=== PATIENT | male | born 1930 | race Caucasian/White ===

== ENCOUNTER 2018-09-07 14:31 | Emergency (ER) | payer OTHER, MEDICAID ==
[~2018-09-07] VITALS: Ht 170.2 cm; Wt 63.6 kg
[2018-09-07 14:37] VITALS: Ht 170.2 cm; Wt 63.6 kg
[2018-09-07] MEDS ORDERED: SOD CHLORIDE 0.9% 1,000 ML IV STA ×2 (14:37→15:59)
[2018-09-07] MEDS ORDERED: LORAZEPAM 2 MG INJ IV ONE (17:00)
[2018-09-07 18:30] VITALS: BP 127/59; PULSE 67; RESP 18
--- NOTE | 2018-09-07 19:38 | ERD ---
ER Documentation Chief Complaint Chief Complaint BIB from [facility],confused,no deficit noted HPI This is an 87-year-old male that was brought into the emergency department from [facility] facility. He been sent by his primary care physician for reevaluation as the patient has had generalized weakness for the past several days. He had a decrease in appetite. Contrary to the triage note the patient has not been confused. He denies any chest pain. He has no shortness of breath. He denies any frequency urgency or dysuria. He denies any abdominal pain. He denies a headache or changes in vision. There is been no recent hospitalizations. ROS All systems reviewed and are negative except as per history of present illness. Allergies Allergies: Coded Allergies: No Known Allergy (Unverified , 09/07/18) PMhx/Soc Hx Alcohol Use: Yes (occasional) Hx Substance Use: No Hx Tobacco Use: Yes Smoking Status: Current every day smoker Physical Exam Vitals Vital Signs Date Temp Pulse Resp B/P (MAP) Pulse Ox O2 O2 Flow FiO2 Time Delivery Rate 09/07/18 67 18 127/59 99 Room Air 18:30 (81) 09/07/18 86 18 140/77 96 Room Air 17:00 (98) 09/07/18 97.9 65 18 173/77 96 14:37 (109) Physical Exam Constitutional:Well-developed. Well-nourished. HEENT:Normocephalic. Atraumatic.Pupils were equal round reactive to light. Dry mucous membranes.No tonsillar exudates. Neck: No nuchal rigidity. No lymphadenopathy. No posterior cervical spine tenderness or step-offs. Respiratory: Not using accessory muscles of respiration.Lungs were clear to auscultation bilaterally. No rhonchi. No rales. No wheezing. Cardiovascular: Regular rate regular rhythm.No murmurs. No rubs were appreciated.S1, S2 normal. Distal pulses are palpable 2+ bilaterally. GI: Abdomen was soft. Nontender. Non Distended. No pulsatile abdominal masses or bruits. No rebound. No guarding. Bowel sounds were present and normal. Muscle skeletal: Full range of motion of both the upper and lower extremities bilaterally.Normal muscle tone.No assymetrical calf tenderness or swelling. Skin: No petechia, no purpura. No lesions on the palms or the soles of the feet. No maculopapular rash. NEURO: Patient was alert, awake, orientated x3.No facial droop. Gait observed and patient is able to ambulate with a slow steady gait.Speech had regular rate and rhythm. No focal neurological deficits. Result Diagram: 09/07/18 1510 09/07/18 1510 Results 24 hrs Laboratory Tests Test 09/07/18 15:07 09/07/18 15:10 09/07/18 15:11 09/07/18 15:30 Bedside Glucose 90 mg/dL White Blood Count 5.1 10^3/ul Red Blood Count 4.04 10^6/ul Hemoglobin 12.0 g/dl Hematocrit 37.9 % Mean Corpuscular 93.8 fl Volume Mean Corpuscular 29.7 pg Hemoglobin Mean Corpuscular 31.7 g/dl Hemoglobin Concen t Red Cell 14.6 % Distribution Width Platelet Count 283 10^3/UL Mean Platelet 9.1 fl Volume Immature 0.200 % Granulocytes % Neutrophils % 65.5 % Lymphocytes % 24.4 % Monocytes % 7.5 % Eosinophils % 2.0 % Basophils % 0.4 % Nucleated Red 0.0 /100WBC Blood Cells % Immature 0.010 10^3/ul Granulocytes # Neutrophils # 3.3 10^3/ul Lymphocytes # 1.2 10^3/ul Monocytes # 0.4 10^3/ul Eosinophils # 0.1 10^3/ul Basophils # 0.0 10^3/ul Nucleated Red 0.0 10^3/ul Blood Cells # Prothrombin Time 12.3 Sec Prothrombin Time 1.0 Ratio INR International 0.90 Normalized Ratio Activated 27.6 Sec Partial Thrombopl ast Time Sodium Level 144 mmol/L Potassium Level 4.5 mmol/L Chloride Level 104 mmol/L Carbon Dioxide 33 mmol/L Level Anion Gap 7 Blood Urea 25 mg/dl Nitrogen Creatinine 1.05 mg/dl Est Glomerular mL/min Filtrat Rate mL/min Glucose Level 88 mg/dl Calcium Level 10.0 mg/dl Total Bilirubin 0.3 mg/dl Direct Bilirubin 0.00 mg/dl Indirect 0.3 mg/dl Bilirubin Aspartate Amino 24 IU/L Transf (AST/SGOT) Alanine 14 IU/L Aminotransferase (ALT/SGPT) Alkaline 60 IU/L Phosphatase Creatine Kinase 137 IU/L Creatine Kinase 4.1 Index Creatinine Kinase 5.64 ng/ml MB (Mass) Troponin I 0.015 ng/ml Total Protein 8.0 g/dl Albumin 4.4 g/dl Globulin 3.60 g/dl Albumin/Globulin 1.22 Ratio POC Venous 0.7 mmol/L Lactate Urine Color YELLOW Urine Clarity CLEAR Urine pH 5.0 Urine Specific 1.025 [place] Urine Ketones TRACE mg/dL Urine Nitrite NEGATIVE mg/dL Urine Bilirubin NEGATIVE mg/dL Urine NEGATIVE mg/dL Urobilinogen Urine Leukocyte NEGATIVE [place]/ul Esterase Urine Hemoglobin NEGATIVE mg/dL Urine Glucose NEGATIVE mg/dL Urine Total NEGATIVE mg/dl Protein Current Medications Medications Dose Sig/Kailash Start Time Status Last (Trade) Ordered Route PRN Stop Time Admin Dose Reason Admin Sodium 1,000 ml @ Q1H STAT 09/07/18 DC 09/07/18 Chloride 1,000 mls/hr IV 14:37 14:37 09/07/18 15:36 Sodium 1,000 ml @ Q1H STAT 09/07/18 DC 09/07/18 Chloride 1,000 mls/hr IV 15:59 16:07 09/07/18 16:58 Lorazepam 0.5 mg ONCE ONCE 09/07/18 DC 09/07/18 (Ativan) IV 17:00 16:52 09/07/18 17:01 Procedures/MDM This is an 87 old male that presented to the emergency department for generalized weakness. The patient showed signs of clinical dehydration. He had been placed in a cardiac sonographer continuous pulse oximetry and IV access established by nursing staff. The patient had no electrolyte abnormalities. There is no evidence of atypical myocardial ischemia. The patient did not have a urinary tract infection. Chest radiograph showed no evidence of infiltrates to suggest pneumonia. I spoke with his primary care physician Dr. Yanez and he was in agreement that the patient did not require admission to the hospital and therefore was sent back to his SNF facility via ambulance. The patient while waiting for the ambulance started to become very upset as he stated he wanted to leave immediately. I indicated that the ambulance will take roughly 1 hour for transfer. The patient began yelling and appeared to be experiencing sundowning and there was no improvement with verbal de-escalation. He was given 0.5 mg of Ativan. Afterwards the patient was much more calm with no respiratory distress. The patient had an episode of hypertension during his aggression with a systolic blood pressure of 191. However there is no signs of endorgan damage to suggest hypertensive emergency or urgency. Blood pressure had improved after t he patient received Ativan. 12 Lead EKG tracing ordered and reviewed by myself showed: Normal sinus rhythm of 69 bpm and no arrhythmia. MD interval normal. QRS duration normal. No ST segment elevation No ST segment depression. No changes consistent with acute ischemia. The patient was discharged home in fair condition. They were instructed to return to the emergency department at any time if there was any worsening of their condition. The patient stated they would follow up with their PCP in the next 24-48 hours to initiate a suitable medication regimen under the care of their PCP as well as to allow their PCP to monitor any drug reactions. The patient was discharged home with prescriptions after they gave informed consent to the new medication. They were also fully informed by myself on the adverse effects and adverse drug interactions in order to provide adequate safeguards to prevent possible adverse reactions to medications. Departure Diagnosis: Primary Impression: Dehydration Condition: Fair Patient Instructions: Dehydration ALPHONSO WRIGHT MD Sep 07, 2018 19:38
== END 2018-09-07 18:37 | disposition home or self-care (01) ==
LOC: E/R 14:31
DX: E86.0 Dehydration (principal); F17.210 Nicotine dependence, cigarettes, uncomplicated; R40.2142 Coma scale, eyes open, spontaneous, at arrival to emergency department; R40.2362 Coma scale, best motor response, obeys commands, at arrival to emergency department; R40.2252 Coma scale, best verbal response, oriented, at arrival to emergency department; R07.9 Chest pain, unspecified
CPT/HCPCS: 71045; 80053; 81003; 82550; 82553; 82962; 83605; 84484; 85025; 85610; 85730; 87040; 87086; 93005; J7030; 36415; 96374